=== PATIENT | female | born 1980 | race Native Hawaiian/Other Pacific Islander ===

== ENCOUNTER 2019-03-04 20:34 | Emergency (ER) | payer OTHER, SELFPAY ==
[2019-03-04 20:50] VITALS: BP 209/114; PULSE 99; RESP 16; TEMP 37.3; O2SAT 100
[2019-03-04] MEDS: HYDROCODONE/ACET 5/325 PREPACK 1 BOTTLE MISC (21:43)
[2019-03-04] MEDS: predniSONE 20 MG TABLET 40 MG PO (21:43)
[2019-03-04] MEDS: diazePAM 5 MG TABLET PO (21:44)
[2019-03-04] MEDS: KETOROLAC 60 MG/2 ML VIAL IM (21:44)
--- NOTE | 2019-03-05 03:32 | ED_ITS ---
HPI - Back Pain/Injury General Chief Complaint: Back Pain/Injury Stated Complaint: back pain Time Seen by Provider: 03/04/19 20:45 Source: patient and family Mode of arrival: ambulatory Limitations: no limitations History of Present Illness HPI Narrative: Female smoker with history of back problems with slipped disc noted on imaging a few years ago and no surgical intervention presents with her and a chief complaint of severe midline back pain with radiation down both legs. Patient denies any traumatic injury but does state she exacerbated the pain by standing up and felt significant pain including radiation up the middle of her spine and down into both legs. Patient denies any numbness, tingling or weakness. Patient denies any trouble controlling bowel or bladder. She denies any history of IV drug abuse nor any fever. She denies foot drop. She finds that her pain is worse with motion and improves with rest Complaint: back pain Onset (ago): day(s) Duration: constant Similar Symptoms Previously: Yes Location: lumbar spine Severity: moderate Quality: sharp and stabbing Radiation: left leg and right leg Relieving factors: immobilization Exacerbating factors: movement Associated symptoms: denies other symptoms Related Data Previous Rx's Medication Instructions Recorded diazepam [Valium] 5 mg PO BID-QID PRN #10 tab 03/04/19 hydrocodone-acetaminophen 1 tab PO Q4-6H PRN #10 tab 03/04/19 ketorolac 10 mg PO Q6H PRN #14 tab 03/04/19 lidocaine [Lidoderm] 1 patch TOP DAILY #15 each 03/04/19 prednisone 20 mg PO DAILY #5 tab 03/04/19 Allergies Allergy/AdvReac Type Severity Reaction Status Date / Time cefazolin Allergy Verified 03/04/19 20:55 oxycodone AdvReac Verified 03/04/19 20:55 Review of Systems Constitutional Denies chills, Denies fever(s), Denies lethargy and Denies weakness Eyes Denies change in vision, Denies eye discharge, Denies irritation and Denies loss of vision ENT Ears, Nose, Mouth, and Throat: Denies change in voice, Denies neck pain and Denies sore throat Cardiovascular Denies chest pain, Denies irregular heart rhythm, Denies lightheadedness, Denies palpitations, Denies dyspnea, Denies dyspnea on exertion and Denies orthopnea Respiratory Denies cough, Denies dyspnea, Denies dyspnea on exertion and Denies wheezing Gastrointestinal Gastrointestinal: Denies abdominal pain, Denies change in bowel habits, Denies diarrhea, Denies nausea and Denies vomiting Genitourinary Denies hematuria, Denies flank pain, Denies urinary incontinence and Denies urinary urgency Musculoskeletal Reports back pain and Denies neck pain Integumentary/Breasts Denies pruritus, Denies erythema, Denies rash and Denies wounds Neurologic Denies confusion, Denies loss of vision and Denies weakness Psychiatric Denies anxiety, Denies confusion, Denies depression, Denies homicidal ideation and Denies suicidal ideation Endocrine Denies palpitations Hematologic/Lymphatic Denies easy bruising Allergic/Immunologic Denies wheezing PFSH Social History Smoking Status: Current every day smoker Social History Smoking Status: Current every day smoker Exam Narrative Exam Narrative: GENERAL: 38-year-old female appears stated age;well-nourished, well-developed patient, in mild distress. HEAD: Atraumatic. Normocephalic. No temporal or scalp tenderness. EYES: Pupils equal round and reactive. Extraocular motions intact. No scleral icterus. No injection or drainage. ENT: Nose without bleeding, purulent drainage or septal hematoma. Throat without erythema, tonsillar hypertrophy or exudate. Uvula midline. Airway patent. NECK: Trachea midline. No JVD or lymphadenopathy. Supple, nontender, no meningeal signs. CARDIOVASCULAR: Regular rate and rhythm without murmurs, gallops, or rubs. RESPIRATORY: Clear to auscultation. Breath sounds equal bilaterally. No wheezes, rales, or rhonchi. GASTROINTESTINAL: Abdomen soft, non-tender, nondistended. No hepato- splenomegaly, or palpable masses. No guarding. EXTREMITIES: No clubbing, cyanosis, or edema. No joint tenderness, effusion, or edema noted. BACK: lime [place] tender but free of any obvious external abnormalities. Patient exam notes decreased range of motion and muscle spasm, but no CVA tenderness, or vertebral point tenderness. There are no symptoms of cauda equina such as saddle anesthesia, decreased reflexes, decreased sensation or strength. NEURO: AOx3. SKIN: No rash or erythema. Initial Vital Signs Initial Vital Signs: Vital Signs Temperature 99.2 F 03/04/19 20:50 Pulse Rate 99 H 03/04/19 20:50 Respiratory Rate 16 03/04/19 20:50 Blood Pressure 209/114 H 03/04/19 20:50 Pulse Oximetry 100 03/04/19 20:50 Course Orders Ordered: Discontinued Medications Hydrocodone Bitart/Acetaminophen (Vicodin Prepack) 1 bottle MISC SEEINSTR ONE Stop: 03/04/19 21:35 Last Admin: 03/04/19 21:43 Dose: 1 bottle Diazepam (Valium) 5 mg PO NOW ONE Stop: 03/04/19 21:35 Last Admin: 03/04/19 21:44 Dose: 5 mg Ketorolac Tromethamine (Toradol) 60 mg IM NOW ONE Stop: 03/04/19 21:35 Last Admin: 03/04/19 21:44 Dose: 60 mg Prednisone (Deltasone) 40 mg PO NOW ONE Stop: 03/04/19 21:35 Last Admin: 03/04/19 21:43 Dose: 40 mg Vital Signs - 8 hr 03/04/19 20:50 Temperature 99.2 F Pulse Rate 99 H Respiratory Rate 16 Blood Pressure 209/114 H Pulse Oximetry 100 MDM - Back Pain/Injury MDM Narrative Medical decision making narrative: Multiple etiologies of back pain considered including; Epidural abscess, cauda equina, mass occupying lesion, and other considered Discharge Plan Departure Patient Disposition: Home Clinical Impression: Lumbar radiculopathy Discharge Date/Time: 03/04/19 22:06 Interventions: ED Discharge Assessment Last Done: 03/04/19 22:05 Instructions: DI for Lumbar Radiculopathy Activity Restrictions/Additional Instructions: *You have been diagnosed with [lumbar pain with radiculopathy a] *What to do: *Take medications as directed *Follow up with your primary care provider as planned on Thursday. Please let them know you were seen in the Emergency Department so they can get our records. Given your history and description of pain it seems that an MRI is a reasonable next step, please discuss this and other options moving forward with your doctor *Return to ER if you should have any new, worsening or concerning symptoms Prescriptions: New hydrocodone-acetaminophen 5-325 mg tablet 1 tab PO Q4-6H PRN (Reason: pain) Qty: 10 RF: 0 prednisone 20 mg tablet 20 mg PO DAILY Qty: 5 RF: 0 ketorolac 10 mg tablet 10 mg PO Q6H PRN (Reason: pain) Qty: 14 RF: 0 lidocaine [Lidoderm] 5 % adhesive patch,medicated 1 patch TOP DAILY Qty: 15 RF: 0 diazepam [Valium] 5 mg tablet 5 mg PO BID-QID PRN (Reason: muscle spasm) Qty: 10 RF: 0
== END 2019-03-04 22:06 | disposition home or self-care (01) ==
PROVIDERS: Emergency Provider Emergency Medicine
DX: M54.16 Radiculopathy, lumbar region (principal)
CPT/HCPCS: 96372; 99282; 99283; J1885